=== PATIENT | male | born 1940 | race Caucasian/White ===

== ENCOUNTER 2016-09-29 12:25 | Emergency (ER) | payer MEDICARE, BC ==
[~2016-09-29] VITALS: Ht 180.3 cm; Wt 146.4 kg
[~2016-09-29 12:25] MED LIST: ACIPHEX20 MG PO; ACTOS 45MG45 MG/TAB PO; ACTOS45 MG PO; BYETTA250 MCG/ML SC; CIPRO 500MG TA500 MG PO; COLACE 100100 MG/CAP PO; DARVOCET-N-101 UDTAB PO; DAYPRO 600600 MG; DIOVAN HCT 12.51 TAB PO; DIOVAN/HCT 12.51 TA1 PO; DOXYCYCLINE 10100 MG PO; DUREZOL 5 ML5 ML; FLOMAX 0.40.4 MG/CAP PO; GAS RELIEF 8080 MG PO; GLIPIZIDE10 MG PO; GLUCOPHAGE1000 MG PO; GLUCOTROL10 MG PO; LASIX 40MG TABL40 MG PO; LORTAB 7.5/5001 TAB PO; MAG-OX 400400 MG/TAB PO; METFORMIN ER500 MG PO; NIFEDIPINE ER30 MG PO; NORCO 325 MG-51 TAB PO; POLYMYXIN B/TRIMETH; PREDNISONE10 MG PO; PREDNISONE20 MG PO; PRILOSEC 20MG20 MG PO; PYRIDIUM200 M1 PO; ULTRAM 50MG TAB50 MG PO; VICTOZA6 MG/ML SC; ZOFRAN 4MG T4 MG/TAB PO; ZYLOPRIM 300MG300 MG PO; [UNRECOGNIZED DRUG - OTHER]
[2016-09-29 12:36] VITALS: BP 154/82; PULSE 83; TEMP 98
[2016-09-29] MEDS ORDERED: ZYLOPRIM 300MG300 MG PO (13:15)
[2016-09-29] MEDS ORDERED: LASIX 40MG TABL40 MG PO (13:16)
[2016-09-29] MEDS ORDERED: COLACE 100100 MG/CAP PO (13:16)
[2016-09-29] MEDS ORDERED: FLEXERIL 1010 MG/TAB PO (13:16)
[2016-09-29] MEDS ORDERED: GLUCOTROL10 MG PO (13:17)
[2016-09-29] MEDS ORDERED: GLUCOPHAGE1000 MG PO (13:19)
[2016-09-29] MEDS ORDERED: VICTOZA6 MG/ML SQ (13:19)
[2016-09-29] MEDS ORDERED: PRILOSEC 20MG20 MG PO (13:19)
[2016-09-29] MEDS ORDERED: ACTOS 45MG45 MG/TAB PO (13:20)
[2016-09-29] MEDS ORDERED: ILOTYCIN5 MG/GM OP (13:20)
== END 2016-09-29 13:36 | disposition home or self-care (01) ==
LOC: COL.ER 12:25
DX: H57.12 Ocular pain, left eye (principal); H57.8 Other specified disorders of eye and adnexa; E11.9 Type 2 diabetes mellitus without complications; I10 Essential (primary) hypertension; Z79.84 Long term (current) use of oral hypoglycemic drugs; Z88.0 Allergy status to penicillin

== ENCOUNTER 2016-11-22 12:01 | Emergency (ER) | payer MEDICARE, BC ==
[~2016-11-22] VITALS: Ht 180.3 cm; Wt 146.4 kg
[~2016-11-22 12:01] MED LIST changes: +FLEXERIL 1010 MG/TAB PO; +ILOTYCIN5 MG/GM OP; +VICTOZA6 MG/ML SQ
[2016-11-22 12:05] VITALS: BP 168/76; TEMP 98.1
[2016-11-22 13:19] VITALS: PULSE 80
== END 2016-11-22 13:20 | disposition home or self-care (01) ==
LOC: COL.ER 12:01
DX: M25.561 Pain in right knee (principal)
CPT/HCPCS: L1830

== ENCOUNTER 2017-09-10 19:39 | Emergency (ER) | payer MEDICARE, BC ==
[~2017-09-10] VITALS: Ht 180.3 cm; Wt 145.5 kg
[~2017-09-10 19:39] MED LIST changes: +GLUCOPHAGE500 MG/TAB PO
[2017-09-10 19:41] VITALS: TEMP 98.5
[2017-09-10 20:28] LABS: BASO # 0.1 (0.0-0.2); BASO % 0.9 % (0.0-2.0); EOS # 0.2 (0.0-0.7); EOS % 2.5 % (0-4.0); GRAN # 6.7 (1.4-6.5); GRAN % 71.4 % (42.2-75.2); HEMATOCRIT 41.3 % (42.0-52.0); HEMOGLOBIN 13.5 g/dl (13.5-18.0); LYMPH # 1.5 (1.2-3.4); LYMPH % 16.4 % (20.0-51.0); MEAN CELL VOLUME 93 fl (80.0-100.0); MEAN CORPUSCULAR HEMOGLOBIN 31 pg (27.0-31.0); MEAN CORPUSCULAR HGB CONC 33 g/dl (33.0-37.0); MEAN PLATELET VOLUME 9.5 fl (7.4-10.4); MONO # 0.8 (0.1-0.6); MONO % 8.5 % (1.7-9.3); PLATELET COUNT 298 K/mm3 (130-400); RED BLOOD COUNT 4.43 M/mm3 (4.20-5.60); REDCELL DISTRIBUTION WIDTH-CV 14.7 % (11.5-14.5)
[2017-09-10] MEDS ORDERED: MAG-OX 400400 MG/TAB PO (20:30)
[2017-09-10] MEDS ORDERED: TRADJENTA5 MG PO (20:32)
[2017-09-10] MEDS ORDERED: ASPIRIN 32325 MG/TAB PO (20:33)
[2017-09-10 20:38] LABS: ALBUMIN 3.8 gm/dL (3.5-5.0); BILIRUBIN,TOTAL 0.2 mg/dL (0.0-1.0); CALCIUM 8.9 mg/dL (8.4-10.2); CREATININE, serum 1.11 mg/dL (0.66-1.25); POTASSIUM 4.1 mmol/L (3.4-5.0); TOTAL PROTEIN 6.2 gm/dL (6.4-8.2)
[2017-09-10] MEDS ORDERED: XALATAN EYE DROPS (20:58)
[2017-09-10] MEDS ORDERED: PREDFORTE5ML (20:58)
[2017-09-10 21:06] LABS: ERYTHROCYTE SEDIMENTATION RATE 7 mm/hr (0-30)
[2017-09-10] MEDS ORDERED: DOXYCYCLINE 10100 MG PO (21:34)
[2017-09-10 21:46] VITALS: BP 137/78; PULSE 84
== END 2017-09-10 21:50 | disposition home or self-care (01) ==
LOC: COL.ER 19:39
PROVIDERS: Emergency Medicine
DX: J20.9 Acute bronchitis, unspecified (principal); E11.9 Type 2 diabetes mellitus without complications; I10 Essential (primary) hypertension; M35.3 Polymyalgia rheumatica; E66.9 Obesity, unspecified; Z68.41 Body mass index [BMI] 40.0-44.9, adult; Z79.84 Long term (current) use of oral hypoglycemic drugs; Z79.82 Long term (current) use of aspirin
CPT/HCPCS: J1885; J7030

== ENCOUNTER → 2017-10-22 | Outpatient (CLI) | payer MEDICARE, BC ==
[~2017-10-22] VITALS: Ht 180.3 cm; Wt 147.4 kg
[~2017-10-22] MED LIST changes: +ANEFRIN NS; +AQUAPHOR HEALING41% TP; +ASPIRIN 32325 MG/TAB PO; +BEANO PO; +MUCINEX DM 30 M1 TE1; +MYCELEX10 MG/TAB MM; +PREDFORTE5ML; +PREDFORTE5ML OP; +TRADJENTA5 MG PO; +XALATAN EYE DROPS; +XALATAN EYE DROPS OS
[2017-10-22 07:25] VITALS: BP 176/94; PULSE 75
[2017-10-22 08:28] VITALS: BP 173/92; PULSE 70
== END ==
LOC: COL.RAD 06:54
DX: M51.36 Other intervertebral disc degeneration, lumbar region (principal); M47.9 Spondylosis, unspecified
CPT/HCPCS: J3301

== ENCOUNTER → 2017-11-25 | Outpatient (CLI) | payer MEDICARE, BC ==
[~2017-11-25] VITALS: Ht 180.3 cm; Wt 144.5 kg
[2017-11-25 07:33] VITALS: BP 172/91; PULSE 79
[2017-11-25 08:50] VITALS: BP 166/91; PULSE 77
== END ==
LOC: COL.RAD 07:00
DX: M51.36 Other intervertebral disc degeneration, lumbar region (principal); M48.8X6 Other specified spondylopathies, lumbar region
CPT/HCPCS: J3301

== ENCOUNTER 2019-05-09 16:12 | Emergency (ER) | payer MEDICARE, BC ==
[~2019-05-09] VITALS: Ht 177.8 cm; Wt 127.7 kg
[2019-05-09 16:38] VITALS: TEMP 97.6
[2019-05-09] MEDS ORDERED: NORCO 325 MG-51 TAB PO (18:52)
[2019-05-09] MEDS ORDERED: CLEOCIN HC150 MG/CAP PO (18:52)
[2019-05-09] MEDS ORDERED: NORVASC 5MG5 MG/TAB PO (18:52)
[2019-05-09 18:55] VITALS: BP 185/99; PULSE 79
== END 2019-05-09 18:55 | disposition home or self-care (01) ==
LOC: COL.ER 16:12
DX: R68.84 Jaw pain (principal); E11.9 Type 2 diabetes mellitus without complications; E78.5 Hyperlipidemia, unspecified; I10 Essential (primary) hypertension; Z79.84 Long term (current) use of oral hypoglycemic drugs

== ENCOUNTER 2020-01-19 10:24 | Outpatient (CLI) | payer MEDICARE, BC ==
[~2020-01-19] VITALS: Ht 177.8 cm; Wt 122.4 kg
[~2020-01-19 10:24] MED LIST changes: +CLEOCIN HC150 MG/CAP PO; +NORVASC 5MG5 MG/TAB PO
[2020-01-19] MEDS ORDERED: NORVASC 5MG5 MG/TAB PO (10:34)
[2020-01-19] MEDS ORDERED: TYLENOL 500MG500 MG PO (10:35)
[2020-01-19] MEDS ORDERED: TIMOLOL MALEATE5 M1 OP (10:38)
[2020-01-19] MEDS ORDERED: OZEMPIC0.25 MG/0. SQ (10:40)
[2020-01-19] MEDS ORDERED: HUMIRA(CF)40 MG/0.4 SQ (10:41)
[2020-01-19 10:43] VITALS: BP 152/91; PULSE 65
[2020-01-19 13:30] VITALS: BP 173/92; PULSE 65
--- NOTE | 2020-01-19 14:10 | NUR ---
Pt reports continued numbness and now pins and needles to bilat feet. Will continue to monitor pt.
[2020-01-19 14:30] VITALS: BP 136/72; PULSE 67
--- NOTE | 2020-01-19 15:15 | NUR ---
Pt able to stand, but reports legs continue to feel numb. Pt to be monitored for additional time.
--- NOTE | 2020-01-19 16:00 | NUR ---
recieved pt via w/c to [facility] from radiology, pt had SHILOH, able to move legs well, but has weakness bilateral and does not hold his weight well, will curtis pt, assisted into bed, hob elevated, call light in reach, moves legs up and down in bed occasionally, contacted ride will call when discharged
[2020-01-19 19:34] VITALS: BP 166/87; PULSE 72
--- NOTE | 2020-01-19 20:04 | NUR ---
pt escorted to exit via wheelchair at this time. Pt was able to ambulate around nurses station with minimal assist. We reviewed his discharge paperwork that he had received earlier, and he denied any questions or concerns at this time. lumbar puncture site dressing clean dry and intact.
== END 2020-01-19 20:06 | disposition home or self-care (01) ==
LOC: COL.RAD 10:24
DX: M51.36 Other intervertebral disc degeneration, lumbar region (principal)
CPT/HCPCS: J3301

== ENCOUNTER → 2020-05-31 | Outpatient (CLI) | payer MEDICARE, BC ==
[~2020-05-31] VITALS: Ht 177.8 cm; Wt 121.3 kg
[~2020-05-31] MED LIST changes: +HUMIRA(CF)40 MG/0.4 SQ; +LIPO FLAVONOID PO; +OZEMPIC0.25 MG/0. SQ; +PROBIOTIC ACID1.5 MG PO; +TIMOLOL MALEATE5 M1 OP; +TYLENOL 500MG500 MG PO
[2020-05-31 09:54] VITALS: BP 157/94; PULSE 73
[2020-05-31 11:00] VITALS: BP 155/89; PULSE 67
== END | disposition still patient (30) ==
LOC: COL.RAD 09:24
DX: M51.36 Other intervertebral disc degeneration, lumbar region (principal)
CPT/HCPCS: J3301